=== PATIENT | female | born 1990 | race Caucasian/White ===

== ENCOUNTER → 2016-06-19 | Outpatient (CLI) | payer BC | END | disposition home or self-care (01) | LOC: C.PAPS 08:25 | PROVIDERS: ATTEND Obstetrics & Gynecology | DX: Z01.419 Encounter for gynecological examination (general) (routine) without abnormal findings (principal) ==

== ENCOUNTER 2022-01-30 19:27 | Inpatient (IN) ==
[2022-01-30] MEDS ORDERED: LIDOCAINE 1% LOCAL 20 ML VIAL INFIL PRN (20:27)
[2022-01-30] MEDS ORDERED: OXYTOCIN 30 UNITS/500 ML BAG IV PRN ×2 (20:27→23:47)
[2022-01-30] MEDS ORDERED: BUTORPHANOL TARTRATE 1 MG/ML VIAL IV STA (20:27)
--- NOTE | 2022-01-30 20:31 | History & Physical Report ---
Date of Service January 30, 2022 Assessment & Plan (1) Normal labor: (2) SROM (spontaneous rupture of membranes): Plan admit, labs, iv. desires stadol while awaits epidural. fhts categ 1. History of Present Illness Chief Complaint: contractions and leaking since 755pm clear fluid Primary Care Provider: Emmanuel Beckham, DO 31yo at 40+wks egwaqar presents to L&D with cc of regular ctx and on her way to hospital srom clear fluid as noted above. Breathing with ctx. No vb. +FM. PNC c/b 1.svt--was not using labetalol regularly but did have growth u/s aga at 36wks approx PNL rh pos, ri, gbs neg OBH: g1 GYNH: nl paps Allergies Allergy/AdvReac Type Severity Reaction Status Date / Time No Known Allergies Allergy Verified 01/28/22 14:29 Home Medications Medication Instructions Recorded Confirmed Type prenat.vits,nahid,srh-ahcp-ydsbd 1 tab PO HS 01/24/21 01/30/22 History sertraline 25 mg tablet (Zoloft) 25 mg PO HS 01/24/21 01/30/22 History omega-3 fatty acids-fish oil 360 1 cap PO DAILY 05/12/21 01/30/22 History mg-1,200 mg capsule (Fish Oil) metoprolol tartrate 25 mg tablet 12.5 mg PO ONCE PRN for sustained 08/25/21 01/30/22 Rx tachycardia #10 tabs breast pump #1 ea 10/13/21 01/28/22 Rx Patient History Medical History Anxiety Hirsutism History of COVID-19 Dx 11/2020 > symptoms at time: loss taste/smell, fatigue, mild fever > resolved Migraine SVT (supraventricular tachycardia) Varicella vaccination Surgical History S/P dilation and curettage x 2 S/P wisdom tooth extraction Family History Father Diabetes Dyslipidemia Hypertension Mother Fibroids Grandfather (Maternal) Heart disease Denies family history of Ovarian cancer Breast cancer Colorectal cancer Social History Smoking Status: Never smoker Second Hand Exposure: No; Hx Alcohol Use: Yes Hx Substance Use: No Preferred Language: Guinean Communication Ability: Effective Gun Perforator Required: No Beliefs That Will Affect Care: None marital status: marital status details: Michael Downey (31) [phone] Current Living Situation: Spouse Current Living Situation Comment: lives wtih spouse, 2 dogs. 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 Feels Safe at Home: Yes Assistive Devices: Contacts and Glasses Review of Systems as per Subjective / HPI Physical Exam Constitutional: WD/WN, vitals as above Respiratory: normal respiratory effort, lungs clear to auscultation Cardiovascular: Rate/Rhythm: regular rate and regular rhythm Gastrointestinal (Abdomen): soft gravid nt efw 7-8# Musculoskeletal: no edema nontender calves Neurologic: grossly normal Psychiatric: A+Ox3, euthymic affect Genitourinary: Manual OB Exam: + cervical dilation 5 cm, + cervical effacement 100% and + station 0 OB Exam Monitor Tracing: + external FHT monitor used, + external uterine monitor used (q2-3), + category I and + normal FHT variability Results & Data ([facility]) Vital Signs (Past 12 Hours) Vital Signs Temp Resp 01/30/22 19:52 18 01/30/22 19:52 99.0 F 18 Coding Level of Care Code None Diagnoses Normal labor O80; Z37.9 SROM (spontaneous rupture of membranes)
[2022-01-30 20:49] LABS: Hematocrit (blood only) 39.6 % (34.1-44.9); Hemoglobin 14.1 g/dl (12.0-16.0); Mean Corpuscular Hemoglobin 29.5 pg (25.0-34.0); Mean Corpuscular Hgb Conc 35.6 g/dL (32.0-36.0); Mean Corpuscular Volume 82.8 fL (80.0-100.0); Mean Platelet Volume 12.2 fL (9.4-12.3); Platelet Count 210 K/uL (130-400); RDW Coefficient of Variation 13.6 % (11.5-14.5); RDW Standard Deviation 41.1 fL (36.4-46.3); Red Blood Count 4.78 M/uL (3.93-5.22); White Blood Count 16.34 K/ul (4.8-10.8)
[2022-01-30] MEDS: LACTATED RINGER'S 1,000 ML IV PRN ×2 (20:59→22:34)
[2022-01-30] MEDS ORDERED: LIDOCAINE 2%/EPINEPHRINE 1:200,000 20 ML SDV ONE (21:36)
[2022-01-30] MEDS ORDERED: SODIUM CHLORIDE 0.9% INJ 10 ML VIAL ONE (21:36)
[2022-01-30] MEDS ORDERED: fentaNYL citrate 100 MCG/2 ML VIAL ONE (21:36)
[2022-01-30] MEDS ORDERED: BUPIVACAINE 0.25% 30 ML VIAL ONE (21:36)
[2022-01-30] MEDS ORDERED: ePHEDrine sulfate 50 MG/ML AMP ONE (21:36)
[2022-01-30] MEDS ORDERED: fentaNYL 2MCG/ML ROPIVACAINE 1.25MG/ML 100 ML BAG EPI ONE (21:37)
[2022-01-30] MEDS ORDERED: NALOXONE HCL 1 MG in SODIUM CHLORIDE 0.9% 1000ML 1,000 ML IV PRN (22:10)
[2022-01-30] MEDS ORDERED: diphenhydrAMINE 50 MG/ML VIAL IV PRN (22:10)
[2022-01-30] MEDS ORDERED: ePHEDrine sulfate 50 MG/ML AMP IV PRN (22:10)
[2022-01-30] MEDS ORDERED: fentaNYL 2MCG/ML ROPIVACAINE 1.25MG/ML 100 ML BAG EPI PRN (22:10)
[2022-01-30] MEDS ORDERED: NALOXONE HCL 0.4 MG/1 ML VIAL/CARP IV PRN (22:10)
[2022-01-30] MEDS ORDERED: NALBUPHINE HCL INJ 10 MG/ML AMP IV PRN (22:10)
--- NOTE | 2022-01-30 22:10 | Anesthesiology Consultation ---
Date of Service January 30, 2022 Assessment & Plan (1) Encounter for pre-operative examination: Chart Review Chart Review: Patient NOT seen in Pre Admission Testing and Acceptable Risk for Labor Epidural Consults Requested none History Height/Weight Height: 5 ft 3 in Weight: 92.17 kg Allergies Allergy/AdvReac Type Severity Reaction Status Date / Time No Known Allergies Allergy Verified 01/28/22 14:29 Medications Home Medications Medication Instructions Recorded Confirmed Last Taken prenat.vits,nahid,gaf-ezug-jhbxq 1 tab PO HS 01/24/21 01/30/22 01/29/22 21:00 sertraline 25 mg tablet (Zoloft) 25 mg PO HS 01/24/21 01/30/22 01/29/22 21:00 omega-3 fatty acids-fish oil 360 1 cap PO DAILY 05/12/21 01/30/22 Unknown mg-1,200 mg capsule (Fish Oil) metoprolol tartrate 25 mg tablet 12.5 mg PO ONCE PRN for sustained 08/25/21 01/30/22 Unknown tachycardia #10 tabs breast pump #1 ea 10/13/21 01/28/22 Unknown Active Medications Generic Name Dose Route Start Last Admin Trade Name Freq PRN Reason Stop Dose Admin Lactated Ringer's 1,000 mls @ 125 mls/hr 01/30/22 20:27 01/30/22 21:47 Lr IV 02/01/22 20:26 125 mls/hr .Q8H PRN Infusion L&D Protocol Protocol Past Medical History Medical History Anxiety Hirsutism History of COVID-19 Dx 11/2020 > symptoms at time: loss taste/smell, fatigue, mild fever > resolved Migraine SVT (supraventricular tachycardia) Varicella vaccination Past Family History Family History Father Diabetes Dyslipidemia Hypertension Mother Fibroids Grandfather (Maternal) Heart disease Denies family history of Ovarian cancer Breast cancer Colorectal cancer Past Surgical History Surgical History S/P dilation and curettage x 2 S/P wisdom tooth extraction Social History Smoking Status: Never smoker Hx Alcohol Use: Yes alcohol intake frequency: a few times a month Hx Substance Use: No substance use type: does not use Physical Exam Vital Signs Last Vital Signs Temp 98.2 F 01/30/22 21:48 Pulse 74 01/30/22 22:05 Resp 18 01/30/22 21:48 BP 128/73 01/30/22 21:47 Pulse Ox 96 01/30/22 22:05 Testing Laboratory Results 01/30/22 20:34
[2022-01-30] MEDS ORDERED: SODIUM CHLORIDE 0.9% 250 ML IV PRN (22:12)
--- NOTE | 2022-01-30 23:47 | Labor Progress Brief Note ---
Date of Service January 30, 2022 Subjective feels more comfortable Assessment & Plan (1) Normal labor: (2) SROM (spontaneous rupture of membranes): Plan good cx change. fhts categ 1. will add pit if ctx space out. pt agreeable. Admission and Anticipated Discharge Date Admission Date: January 30, 2022 Physical Exam Constitutional: WD/WN, vitals as above Neurologic: grossly normal Psychiatric: A+Ox3, euthymic affect Genitourinary: Manual OB Exam: + cervical dilation 7 cm, + cervical effacement 100% and + station + 1 OB Exam Monitor Tracing: + external FHT monitor used, + external uterine monitor used (q2-3), + category I and + normal FHT variability Results & Data ([facility]) Vital Signs (Past 12 Hours) Vital Signs Temp Pulse Resp BP Pulse Ox Pulse Ox O2 Del Method 01/30/22 22:41 98 Room Air 01/30/22 23:40 104 H 100 01/30/22 23:37 81 121/60 01/30/22 23:35 79 100 01/30/22 23:30 86 100 01/30/22 23:25 84 99 01/30/22 23:20 73 99 01/30/22 23:19 72 118/61 01/30/22 23:15 81 99 01/30/22 23:14 76 124/60 01/30/22 23:10 73 99 01/30/22 23:08 78 118/58 L 01/30/22 23:05 76 100 01/30/22 23:03 105 H 134/66 01/30/22 23:00 86 100 01/30/22 22:58 79 124/61 01/30/22 22:55 77 100 01/30/22 22:53 86 134/74 01/30/22 22:50 78 100 01/30/22 22:48 75 134/73 01/30/22 22:45 78 100 01/30/22 22:42 77 134/66 01/30/22 22:40 76 137/67 99 01/30/22 22:38 77 132/68 01/30/22 22:36 84 133/71 01/30/22 22:35 80 100 01/30/22 22:32 80 134/72 01/30/22 22:31 91 H 94 01/30/22 22:30 90 98 01/30/22 22:25 97 01/30/22 22:25 87 01/30/22 22:25 83 93 01/30/22 22:20 87 98 01/30/22 22:19 84 94 01/30/22 22:15 79 97 01/30/22 22:10 95 H 97 01/30/22 22:05 74 96 01/30/22 22:00 88 100 01/30/22 21:55 80 97 01/30/22 21:50 87 99 01/30/22 21:48 18 01/30/22 21:48 98.2 F 18 01/30/22 21:47 83 128/73 01/30/22 21:45 77 97 01/30/22 19:52 18 01/30/22 19:52 99.0 F 18 01/30/22 19:53 99.0 F 18 Coding Level of Care Code None Diagnoses Normal labor O80; Z37.9 SROM (spontaneous rupture of membranes)
[2022-01-31] MEDS: CALCIUM CARBONATE 500 MG CHEWABLE TAB PO PRN ×2 (01:39→06:17)
[2022-01-31] MEDS: LACTATED RINGER'S 1,000 ML IV PRN (06:33)
--- NOTE | 2022-01-31 07:37 | Labor Progress Brief Note ---
Date of Service January 31, 2022 Subjective pt overall comfortable, no rectal pressure, feels pain with ctx in her left groin, not terrible but that's how she knows she is having ctx. Assessment & Plan (1) Normal labor: Plan rec pt change to knee chest position if possible for next several minutes, what she can tolerate and if has urge to push ok to do so. c/w pit and cont to increase to keep ctx regular. will reeval cx in next 30min or so to make sure lip has stayed reduced. fhts categ 1. Admission and Anticipated Discharge Date Admission Date: January 30, 2022 Physical Exam Constitutional: WD/WN, vitals as above Genitourinary: Manual OB Exam: + cervical dilation (ant lip), + cervical effacement 100% and + station + 2 OB Exam Monitor Tracing: + external FHT monitor used, + external uterine monitor used (q2-5 pit at 11), + category I and + normal FHT variability Pt pushed supine x 2 and lip reduced. Results & Data ([facility]) Vital Signs (Past 12 Hours) Vital Signs Temp Pulse Resp BP Pulse Ox Pulse Ox O2 Del Method 01/31/22 07:12 98.2 F 102 H 18 94 01/30/22 23:35 98.4 F 01/30/22 22:41 98 Room Air 01/31/22 07:30 147 H 98 01/31/22 07:28 135 H 86 L 01/31/22 07:25 120 H 84 L 01/31/22 07:23 127 H 92 01/31/22 07:22 129 H 140/95 01/31/22 07:20 119 H 97 01/31/22 07:15 93 H 94 01/31/22 07:14 102 H 94 01/31/22 07:10 103 H 95 01/31/22 07:07 97 H 137/65 01/31/22 07:05 94 H 97 01/31/22 07:00 120 H 96 01/31/22 06:55 97 H 96 01/31/22 06:53 84 128/68 01/31/22 06:51 99 H 94 01/31/22 06:50 101 H 95 01/31/22 06:45 103 H 95 01/31/22 06:40 91 H 96 01/31/22 06:38 94 H 128/60 01/31/22 06:35 93 H 97 01/31/22 06:30 94 H 96 01/31/22 06:25 96 H 97 01/31/22 06:22 97 H 132/72 01/31/22 06:20 99 H 95 01/31/22 06:15 99 H 97 01/31/22 06:10 119 H 96 01/31/22 06:07 112 H 138/79 01/31/22 06:05 99 H 97 01/31/22 06:01 16 01/31/22 06:01 99.7 F H 16 01/31/22 06:00 98 H 97 01/31/22 05:55 106 H 97 01/31/22 05:52 104 H 141/74 H 01/31/22 05:50 96 H 97 01/31/22 05:45 93 H 97 01/31/22 05:40 103 H 98 01/31/22 05:38 88 137/72 01/31/22 05:35 100 H 97 01/31/22 05:30 102 H 97 01/31/22 05:25 98 H 95 01/31/22 05:23 91 H 139/73 01/31/22 05:20 101 H 96 01/31/22 05:15 96 H 97 01/31/22 05:10 95 H 97 01/31/22 05:07 90 134/75 01/31/22 05:05 92 H 96 01/31/22 05:00 99 H 97 01/31/22 04:55 92 H 96 01/31/22 04:52 100 H 141/79 H 01/31/22 04:50 91 H 97 01/31/22 04:45 93 H 97 01/31/22 04:40 93 H 98 01/31/22 04:37 98 H 140/80 01/31/22 04:35 117 H 99 01/31/22 04:30 101 H 100 01/31/22 04:25 102 H 99 01/31/22 04:24 112 H 92 01/31/22 04:22 101 H 140/82 01/31/22 04:20 89 98 01/31/22 04:15 98 H 98 01/31/22 04:10 104 H 98 01/31/22 04:07 98 H 137/79 01/31/22 04:05 98 H 98 01/31/22 04:00 98 H 98 01/31/22 03:55 108 H 98 01/31/22 03:53 105 H 141/80 H 01/31/22 03:50 115 H 98 01/31/22 03:45 121 H 99 01/31/22 03:40 139 H 99 01/31/22 03:37 114 H 123/68 01/31/22 03:35 103 H 100 01/31/22 03:30 118 H 99 01/31/22 03:25 114 H 100 01/31/22 03:22 109 H 133/74 01/31/22 03:20 98.8 F 113 H 18 99 01/31/22 03:15 113 H 99 01/31/22 03:10 112 H 100 01/31/22 03:07 106 H 132/71 01/31/22 03:05 103 H 100 01/31/22 03:00 108 H 99 01/31/22 02:55 113 H 99 01/31/22 02:52 112 H 118/66 01/31/22 02:50 118 H 98 01/31/22 02:45 105 H 99 01/31/22 02:40 108 H 98 01/31/22 02:37 116 H 116/64 01/31/22 02:35 103 H 98 01/31/22 02:30 92 H 99 01/31/22 02:25 95 H 99 01/31/22 02:22 90 119/65 01/31/22 02:20 102 H 100 01/31/22 02:15 89 98 01/31/22 02:10 94 H 99 01/31/22 02:07 97 H 132/75 01/31/22 02:05 96 H 98 01/31/22 02:00 101 H 100 01/31/22 01:55 94 H 98 01/31/22 01:52 126 H 135/72 01/31/22 01:50 103 H 100 01/31/22 01:45 103 H 99 01/31/22 01:43 126 H 92 01/31/22 01:40 125 H 99 01/31/22 01:37 118 H 146/74 H 01/31/22 01:35 138 H 99 01/31/22 01:30 114 H 98 01/31/22 01:25 92 H 98 01/31/22 01:23 86 137/68 01/31/22 01:20 94 H 98 01/31/22 01:15 85 98 01/31/22 01:10 116 H 98 01/31/22 01:07 94 H 131/65 01/31/22 01:05 91 H 98 01/31/22 01:00 87 98 01/31/22 00:55 83 98 01/31/22 00:52 91 H 137/71 01/31/22 00:50 93 H 97 01/31/22 00:45 88 95 01/31/22 00:40 87 98 01/31/22 00:38 78 130/77 01/31/22 00:35 87 98 01/31/22 00:30 80 98 01/31/22 00:25 81 99 01/31/22 00:22 84 138/88 01/31/22 00:20 83 99 01/31/22 00:15 81 98 01/31/22 00:10 82 98 01/31/22 00:07 80 135/78 01/31/22 00:05 101 H 98 01/31/22 00:00 76 98 01/30/22 23:55 81 99 01/30/22 23:52 73 133/79 01/30/22 23:50 77 99 01/30/22 23:45 82 99 01/30/22 23:40 104 H 100 01/30/22 23:37 81 121/60 01/30/22 23:35 79 100 01/30/22 23:30 86 100 01/30/22 23:25 84 99 01/30/22 23:20 73 99 01/30/22 23:19 72 118/61 01/30/22 23:15 81 99 01/30/22 23:14 76 124/60 01/30/22 23:10 73 99 01/30/22 23:08 78 118/58 L 01/30/22 23:05 76 100 01/30/22 23:03 105 H 134/66 01/30/22 23:00 86 100 01/30/22 22:58 79 124/61 01/30/22 22:55 77 100 01/30/22 22:53 86 134/74 01/30/22 22:50 78 100 01/30/22 22:48 75 134/73 01/30/22 22:45 78 100 01/30/22 22:42 77 134/66 01/30/22 22:40 76 137/67 99 01/30/22 22:38 77 132/68 01/30/22 22:36 84 133/71 01/30/22 22:35 80 100 01/30/22 22:32 80 134/72 01/30/22 22:31 91 H 94 01/30/22 22:30 90 98 01/30/22 22:25 97 01/30/22 22:25 87 01/30/22 22:25 83 93 01/30/22 22:20 87 98 01/30/22 22:19 84 94 01/30/22 22:15 79 97 01/30/22 22:10 95 H 97 01/30/22 22:05 74 96 01/30/22 22:00 88 100 01/30/22 21:55 80 97 01/30/22 21:50 87 99 01/30/22 21:48 18 01/30/22 21:48 98.2 F 18 01/30/22 21:47 83 128/73 01/30/22 21:45 77 97 01/30/22 19:52 18 01/30/22 19:52 99.0 F 18 01/30/22 19:53 99.0 F 18 Coding Level of Care Code None Diagnoses Normal labor O80; Z37.9
--- NOTE | 2022-01-31 09:14 | Delivery Summary ---
Vaginal Delivery Summary Date of Service January 31, 2022 Vaginal Delivery Summary DIAGNOSES: 1. Lundy intrauterine at 40w2d gestation. 2. Spontaneous onset of labor. 3. Group B Streptococcus Neg. PROCEDURE: Spontaneous vaginal delivery and repair of 2nd degree laceration. SURGEON: Juliana Ramirez MD. SPECIALTY THERAPIST: None. ESTIMATED BLOOD LOSS: 250 mL. COMPLICATIONS: None. PLACENTA: Spontaneous and intact with a 3-vessel cord. DISPOSITION: Stable to labor and delivery. DESCRIPTION: The patient pushed well and brought the head to in DOA position. The infant's head was allowed to deliver with contraction force and no further active pushing, with the perineum protected during this time. There was no nuchal cord. The left shoulder was anterior and the left hand was compound alongside the R cheek. The shoulders and body delivered without any difficulty, and the infant was placed on the maternal abdomen. It was vigorous and moving all extremities, and making respiratory efforts. The cord was doubly clamped by the MD and then cut by the FOB. The placenta delivered spontaneously and was noted to be intact and with a 3VC. The cervix, vagina and perineum were examined and were found to have a second degree laceration which exposed, but did not injure, the anal sphincter. This was repaired with 3-0 vicryl in a running locked manner, and 2-0 vicryl to make two crown stitches to reapproximate the perineal body. The fundus was firm and lochia minimal immediately after delivery. [facility] Vaginal Delivery Charge Vaginal Delivery Codes: 39205 global code for the antepartum, delivery, and post-
[2022-01-31] MEDS ORDERED: DIPHTHERIA/TETANUS/PERTUSSIS 0.5 ML SYR/VIAL IM ONE (09:43)
[2022-01-31] MEDS ORDERED: BENZOCAINE 20% AER SPR 82.5 GM CAN EXT PRN (09:43)
[2022-01-31] MEDS ORDERED: bisacodyL 10 MG SUPP PR PRN (09:43)
[2022-01-31] MEDS ORDERED: ACETAMINOPHEN 325 MG TAB PO PRN (09:43)
[2022-01-31] MEDS ORDERED: HYDROCORTISONE ACETATE 25 MG SUPP PR PRN (09:43)
[2022-01-31] MEDS ORDERED: METOPROLOL TARTRATE 25 MG TAB PO PRN (09:43)
[2022-01-31] MEDS ORDERED: oxyCODONE/ACETAMINOPHEN 5mg/325mg TAB PO PRN (09:43)
[2022-01-31] MEDS ORDERED: OXYTOCIN 30 UNITS/500 ML BAG IV PRN (09:43)
--- NOTE | 2022-01-31 09:54 | Anesthesia Procedure Note ---
Date of Service January 31, 2022 Anesthesia Post Epidural Note Vital Signs Vital Signs: Temp Pulse Resp BP Pulse Ox O2 Del Method 36.8 C 107 H 18 119/75 95 01/31/22 07:12 01/31/22 09:50 01/31/22 07:12 01/31/22 09:37 01/31/22 09:50 01/30/22 22:41 Pain Intensity Abdomen: Pain Intensity: 8 Left Hip: Pain Intensity: 4 Notes Mental Status: alert / awake / arousable and participated in evaluation Nausea / Vomiting: adequately controlled Pain: adequately controlled Airway Patency, RR, SpO2: stable & adequate BP & HR: stable & adequate Hydration State: stable & adequate Neuraxial Anesthesia: was administered and sensory block is resolving Anesthetic Complications: no major complications apparent and Pt Satisfied with anesthetic care Epidural: Removed without complications and With tip intact
[2022-01-31] MEDS: IBUPROFEN 600 MG TAB PO PRN ×3 (10:58→20:27)
[2022-01-31] MEDS: DOCUSATE SODIUM 100 MG CAP PO SCH (20:26)
[2022-01-31] MEDS: SERTRALINE HCL 50 MG TABLET PO SCH (20:27)
[2022-02-01] MEDS: IBUPROFEN 600 MG TAB PO PRN ×4 (03:41→20:20)
[2022-02-01 06:35] LABS: Hematocrit (blood only) 32.8 % (34.1-44.9); Hemoglobin 11.5 g/dl (12.0-16.0); Mean Corpuscular Hemoglobin 29.1 pg (25.0-34.0); Mean Corpuscular Hgb Conc 35.1 g/dL (32.0-36.0); Mean Platelet Volume 12.1 fL (9.4-12.3); Platelet Count 191 K/uL (130-400); RDW Coefficient of Variation 14.4 % (11.5-14.5); Red Blood Count 3.95 M/uL (3.93-5.22); White Blood Count 18.54 K/ul (4.8-10.8)
--- NOTE | 2022-02-01 07:41 | Obstetrical Progress Note ---
Date of Service February 01, 2022 Assessment & Plan (1) Vaginal delivery: Recovering well, labs reassuring, routine PP care and assistance today, infant left room to be circumcised during my visit with parents this AM. Discussed options for discharge timing and patient will stay until tomorrow. Subjective Ambulation: ambulating normally Voiding: no voiding problems Passing Gas:: Yes Diet Tolerance:: regular diet Lochia:: Small Feeding Type:: bottle feeding Current Pain Level(1-10): 0 Physical Exam Constitutional WD/WN, vitals as above Eyes PERRL, conjunctivae normal, anicteric sclerae ENMT external ear and nose normal, oropharynx normal Neck trachea midline, no thyromegaly Respiratory normal respiratory effort and able to speak in complete sentences; no respiratory distress, no labored breathing and does not use accessory muscles Cardiovascular Rate/Rhythm: regular rate and regular rhythm Extremities: no pedal edema Gastrointestinal (Abdomen) Inspection/Auscultation: abdomen normal to inspection; abdomen not distended Musculoskeletal no cyanosis or clubbing, extremities motor strength 5/5 Skin no rashes, warm and dry Psychiatric A+Ox3, euthymic affect Genitourinary Speculum/Bimanual Exam: uterus nontender OB Exam Abdomen: + fundal height (-2 below umbilicus) Fundus: + firm Results & Data ([facility]) Vital Signs (Past 12 Hours) Vital Signs Temp Pulse Resp BP Pulse Ox O2 Del Method 02/01/22 03:45 97.7 F 87 18 120/73 100 Room Air 01/31/22 23:55 98.1 F 100 H 16 126/70 99 Room Air 01/31/22 20:00 98.2 F 96 H 18 128/81 100 Room Air
[2022-02-01] MEDS: PRENATAL VITAMIN 1 TAB PO SCH (07:48)
[2022-02-01] MEDS: DOCUSATE SODIUM 100 MG CAP PO SCH ×2 (07:48→20:20)
[2022-02-01] MEDS ORDERED: bisacodyL 5 MG TABEC PO SCH (20:00)
[2022-02-01] MEDS: SERTRALINE HCL 50 MG TABLET PO SCH (20:19)
[2022-02-02 06:16] LABS: Hematocrit (blood only) 34.1 % (34.1-44.9); Hemoglobin 11.8 g/dl (12.0-16.0)
[2022-02-02] MEDS: IBUPROFEN 600 MG TAB PO PRN (06:27)
--- NOTE | 2022-02-02 06:32 | Obstetrical Progress Note ---
Date of Service <Ernesto HaddadSmita Mcgovern DO - Last Filed: 02/02/22 06:55> February 02, 2022 Assessment & Plan <Ernesto RoldanDO riley - Last Filed: 02/02/22 06:55> (1) Vaginal delivery: - Feels well today. Eating well, voiding well, ambulating well. - Pain well controlled with ibuprofen 600mg Q4H PRN - Routine care -- OOB, ambulation, diet progression as tolerated - After discharge will have 6 week follow-up with Dr. Ramirez - Patient will be D/C today. <Juliana Ramirez MD - Last Filed: 02/02/22 07:56> (1) Vaginal delivery: Subjective <Ernesto HaddadSmita Mcgovern DO - Last Filed: 02/02/22 06:55> Ambulation: ambulating normally Voiding: no voiding problems Passing Gas:: Yes Diet Tolerance:: regular diet Lochia:: Small Feeding Type:: breast feeding (with bottle supplement) Current Pain Level(1-10): 0 Patient is a 31 y/o female who is now PPD # 2 following spontaneous vaginal delivery at 40w2d. Reports feeling well overall this morning. Mild abdominal cramping & 2-3/10 pain well managed on analgesics. Voiding well. Tolerating meals overnight and able to ambulate some. Able to pass gas. Has some persistent lochia with some improvement this morning. Currently breast feeding and supplmenting with formula. Review of Systems Denies fever, chills, sweats Denies shortness of breath, difficulty breathing, chest pain, palpitations, chest pressure. Mild breast pain. Denies dysuria. Denies headache or changes in vision. Physical Exam <Ernesto HaddadSmita Mcgovern DO - Last Filed: 02/02/22 06:55> General: Alert, oriented. No acute distress. Cardiac: Regular rate and rhythm, no murmurs/rubs/gallops. Respiratory: Clear to auscultation bilaterally a/p, no wheezes/rales/rhonchi. No increased work of breathing. Symmetrical chest rise. No respiratory distress. Abdomen: Soft, nontender, nondistended. Bowel sounds present. Uterus: Uterine fundus firm, palpable 3 cm below umbilicus. Lower Extremities: No lower extremity edema or swelling. No deep calf pain. Kristina's negative bilaterally. Results & Data ([facility]) <Ernesto Mcgovern DO - Last Filed: 02/02/22 06:55> Vital Signs (Past 12 Hours) Vital Signs Temp Pulse Resp BP Pulse Ox O2 Del Method 02/01/22 23:40 Room Air 02/01/22 23:40 36.6 C 84 18 126/79 100 Room Air 02/01/22 20:20 Room Air 02/01/22 20:20 36.9 C 92 H 18 121/74 98 Room Air <Juliana Ramirez MD - Last Filed: 02/02/22 07:56> Co-Signing Physician Notes Resident Physician Supervision Note: I interviewed and examined the patient. Discussed with Dr. Mcgovern and agree with findings and plan as documented in the note. Any exceptions or clarifications are listed here: [ ] Documented By: Juliana Ramirez MD, FACOG
[2022-02-02] MEDS: DOCUSATE SODIUM 100 MG CAP PO SCH (07:27)
[2022-02-02] MEDS: PRENATAL VITAMIN 1 TAB PO SCH (07:27)
== END 2022-02-02 11:00 | disposition home or self-care (01) | DRG 807 ==
LOC: OPB 19:27 → 4S1 19:51 → 4E2 01-31 12:00